=== PATIENT | male | born 2000 | race Caucasian/White ===

== ENCOUNTER 2019-03-18 12:34 | Emergency (ER) | payer SELFPAY ==
[~2019-03-18] VITALS: Ht 195 cm; Wt 93.0 kg
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
[2019-03-18] MEDS ORDERED: ONDANSETRON 4 MG/2 ML (SDV) Z0FRAN IVP ONE (13:15)
[2019-03-18] MEDS ORDERED: ONDANSETRON 4 MG (ZOFRAN) ORAL DISSOLVE TAB PO STA (13:20)
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
[2019-03-18] MEDS ORDERED: ONDA8TAB13 PO (14:00)
[2019-03-18] MEDS ORDERED: MECL-124 PO (14:00)
== END 2019-03-18 14:06 | disposition home or self-care (01) ==
LOC: ER 12:35
DX: S09.90XA Unspecified injury of head, initial encounter (principal); F07.81 Postconcussional syndrome; G44.309 Post-traumatic headache, unspecified, not intractable; I10 Essential (primary) hypertension; G40.909 Epilepsy, unspecified, not intractable, without status epilepticus; F90.9 Attention-deficit hyperactivity disorder, unspecified type; F41.9 Anxiety disorder, unspecified; F31.9 Bipolar disorder, unspecified; F17.290 Nicotine dependence, other tobacco product, uncomplicated; Z91.5 Personal history of self-harm; Y00.XXXA Assault by blunt object, initial encounter
CPT/HCPCS: 70450

== ENCOUNTER 2019-03-18 19:54 | Emergency (ER) | payer SELFPAY ==
[~2019-03-18] VITALS: Ht 195 cm; Wt 93.0 kg
[~2019-03-18 19:54] MED LIST: MECL-124 PO; ONDA8TAB13 PO
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
[2019-03-18 20:12] LABS: BASOPHILS % (AUTO) 0 % (0-10); EOSINOPHILS # (AUTO) 0.3 10^3/uL (0.0-0.3); EOSINOPHILS % (AUTO) 3 % (0-10); HEMATOCRIT 40 % (40-54); HEMOGLOBIN 13.3 G/DL (13.3-17.7); LYMPHOCYTES # (AUTO) 2.2 X 10^3 (1.0-4.0); LYMPHOCYTES % (AUTO) 24 % (12-44); MEAN CORPUSCULAR HEMOGLOBIN 30 PG (25-34); MEAN CORPUSCULAR HGB CONC 33 G/DL (32-36); MEAN CORPUSCULAR VOLUME 92 FL (80-99); MEAN PLATELET VOLUME 8.4 FL (7.4-10.4); MONOCYTES # (AUTO) 1.2 X 10^3 (0.0-1.0); MONOCYTES % (AUTO) 13 % (0-12); NEUTROPHILS # (AUTO) 5.5 X 10^3 (1.8-7.8); NEUTROPHILS % (AUTO) 60 % (42-75); PLATELET COUNT 270 10^3/uL (130-400); RED CELL DISTRIBUTION WIDTH 14.6 % (10.0-14.5); WHITE BLOOD COUNT 9.2 10^3/uL (4.3-11.0)
--- NOTE | 2019-03-18 20:15 | NUR ---
PT PULLED OUT IV.
--- NOTE | 2019-03-18 20:20 | NUR ---
PT WANTING TO LEAVE HOSPITAL.
[2019-03-18 20:24] LABS: BILIRUBIN,URINE NEGATIVE (NEGATIVE); CLARITY,URINE CLEAR; GLUCOSE, URINE (UA) NEGATIVE (NEGATIVE); KETONES,URINE NEGATIVE (NEGATIVE); LEUKOCYTE ESTERASE ,URINE NEGATIVE (NEGATIVE); NITRITE,URINE NEGATIVE (NEGATIVE); PH,URINE 6.5 (5-9); PROTEIN,URINE 2+ (NEGATIVE); UROBILINOGEN,URINE NORMAL (NORMAL)
--- NOTE | 2019-03-18 20:25 | NUR ---
pt refusing to put monitors on, informed of anticipated wait times for labs. pt states " fuck this place" walked out of e.d. followed by sister.
[2019-03-18 20:35] LABS: ALANINE AMINOTRANSFERASE 27 U/L (0-55); ALBUMIN 4.2 GM/DL (3.2-4.5); ALKALINE PHOSPHATASE 61 U/L (40-136); BILIRUBIN,TOTAL 0.2 MG/DL (0.1-1.0); BUN/CREATININE RATIO 18; CALCIUM 9.9 MG/DL (8.5-10.1); CARBON DIOXIDE 25 MMOL/L (21-32); CHLORIDE 105 MMOL/L (98-107); GFR ESTIMATED > 60; GLUCOSE 112 MG/DL (70-105); POTASSIUM 4.3 MMOL/L (3.6-5.0); SODIUM 142 MMOL/L (135-145); TOTAL PROTEIN 6.7 GM/DL (6.4-8.2)
[2019-03-18 20:37] LABS: AMPHETAMINE SCREEN, URINE NEGATIVE (NEGATIVE); BARBITURATE SCREEN URINE NEGATIVE (NEGATIVE); BENZODIAZEPINES SCREEN URINE POSITIVE (NEGATIVE); CANNABINOID SCREEN, URINE NEGATIVE (NEGATIVE); COCAINE SCREEN URINE NEGATIVE (NEGATIVE); METHADONE STAT NEGATIVE (NEGATIVE); METHAMPHETAMINE SCREEN URINE S NEGATIVE (NEGATIVE); OPIATE SCREEN URINE NEGATIVE (NEGATIVE); OXYCODONE STAT NEGATIVE (NEGATIVE); PROPOXYPHENE STAT NEGATIVE (NEGATIVE); TRICYCLIC ANTIDEPRESSANTS SCRE POSITIVE (NEGATIVE)
[2019-03-18 20:43] LABS: VALPROIC ACID 37.5 UG/ML (50.0-100.0)
[2019-03-18 20:45] LABS: BACTERIA,URINE NEGATIVE /HPF; COLOR,URINE YELLOW; RBC,URINE 0-2 /HPF; SQUAMOUS EPITHELIAL CELL,UR RARE /HPF
--- NOTE | 2019-03-18 20:45 | NUR ---
pt back in from waiting room. monitors applied
[2019-03-18] MEDS ORDERED: LORazepam INJ 2 MG/ML (ATIVAN) VIAL IVP ONE (21:15)
[2019-03-18] MEDS ORDERED: RX-HYDROCODONE/APAP 5/325 MG #4 TAB PK PO PRN (21:30)
[2019-03-18] MEDS ORDERED: HYDROcodone/APAP 5 MG/325 MG (LORTAB) TAB ONE (21:33)
[2019-03-18] MEDS ORDERED: HYDROcodone/APAP 5 MG/325 MG (LORTAB) TAB PO ONE (21:45)
[2019-03-18] MEDS ORDERED: DIVALPROEX EXT RELEASE 500 MG (DEPAKOTE ER) TAB PO ONE (21:49)
--- NOTE | 2019-03-18 21:53 | Diagnostic Imaging Report ---
PROCEDURE: CT head without contrast. TECHNIQUE: Multiple contiguous axial images were obtained through the brain without the use of intravenous contrast. Auto Exposure Controls were utilized during the CT exam to meet ALARA standards for radiation dose reduction. INDICATION: Seizure with head injury. FINDINGS: Since the examination of earlier in the day, there has been no significant change in CT appearance of the head. Focal regions of presumed encephalomalacia are again seen in the periphery of the right parietal and posterior occipital lobes. There is no evidence of increasing density to suggest active hemorrhage. There is no abnormal mass effect or shift of midline structures. There is opacification of mastoid air cells, bilaterally. Fracture involving the proximal right zygoma is again noted. Other fractures involving the right temporal bone are also stable. IMPRESSION: Stable overall appearance of the brain with evidence of right trauma resulting in probable contusions and developing encephalomalacia in the right parietal and occipital lobes. Right temporal and zygomatic fractures are stable with probable hemorrhage into the right mastoid air cells. Dictated by: Dictated on workstation # [id number]
[2019-03-19] MEDS ORDERED: DIVALPROEX EXT RELEASE 500 MG (DEPAKOTE ER) TAB PO SCH (21:00)
== END 2019-03-18 22:06 | disposition home or self-care (01) ==
LOC: EDUNIT# 19:54 → ER 19:55
DX: S06.9X0A Unspecified intracranial injury without loss of consciousness, initial encounter (principal); H11.31 Conjunctival hemorrhage, right eye; R25.9 Unspecified abnormal involuntary movements; F07.81 Postconcussional syndrome; I10 Essential (primary) hypertension; G40.909 Epilepsy, unspecified, not intractable, without status epilepticus; F90.9 Attention-deficit hyperactivity disorder, unspecified type; F41.9 Anxiety disorder, unspecified; F31.9 Bipolar disorder, unspecified; Z87.19 Personal history of other diseases of the digestive system; Z77.22 Contact with and (suspected) exposure to environmental tobacco smoke (acute) (chronic); X58.XXXA Exposure to other specified factors, initial encounter
CPT/HCPCS: 36415; 70450; 80053; 80164; 80306; 80320; 81000; 85025

== ENCOUNTER 2019-03-19 03:12 | Emergency (ER) | payer SELFPAY ==
[~2019-03-19] VITALS: Ht 195.6 cm; Wt 93.0 kg
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
== END 2019-03-19 03:40 | disposition left against medical advice (07) ==
LOC: EDUNIT# 03:12 → ER 03:14
DX: S06.9X0S Unspecified intracranial injury without loss of consciousness, sequela (principal); R56.1 Post traumatic seizures; I10 Essential (primary) hypertension; F90.9 Attention-deficit hyperactivity disorder, unspecified type; F41.9 Anxiety disorder, unspecified; F31.9 Bipolar disorder, unspecified; F17.290 Nicotine dependence, other tobacco product, uncomplicated; Z87.19 Personal history of other diseases of the digestive system; X58.XXXS Exposure to other specified factors, sequela
CPT/HCPCS: 99283